=== PATIENT | female | born 1985 | race Caucasian/White ===

== ENCOUNTER 2019-11-16 10:47 | Emergency (ER) | payer SELFPAY ==
[2019-11-16 11:22] LABS: #Lymphocytes 0.5 thou/uL (1.20-3.40); #Monocytes 0.5 thou/uL (0.11-0.59); #Neutrophils 3.9 thou/uL (1.40-6.50); %Basophils 0.5 % (0.0-1.0); %Eosinophils 0.4 % (0.0-10.0); %Lymphocytes 10.2 % (21.0-51.0); %Monocytes 10.3 % (0.0-10.0); %Neutrophils 78.6 % (42.0-75.0); Mean Corpuscular HGB CONC 34.2 g/dL (32.0-36.0); Mean Corpuscular Hemoglobin 34.1 pg (27.0-31.0); Mean Corpuscular Volume 99.5 fL (78.0-98.0); Mean Platelet Volume 8.8 fL (7.4-10.4); Platelet Count 124 thou/uL (130-400); RBC Distribution Width 11.5 % (11.5-14.5); Red Blood Cell (RBC) Count 4.41 mill/uL (4.20-5.40)
[2019-11-16 11:45] LABS: ALT (SGPT) 143 U/L (8-55); AST (SGOT) 194 U/L (5-34); Albumin 4.8 g/dL (3.5-5.0); Alkaline Phosphatase 68 U/L (40-110); Anion Gap 24 mmol/L (10-20); BUN (Urea Nitrogen) 15 mg/dL (7.0-18.7); Bilirubin, Total 2.7 mg/dL (0.2-1.2); Calc. Creatinine Clearance 0 mL/min (70-130); Calcium 9.8 mg/dL (7.8-10.44); Carbon Dioxide 24 mmol/L (22-29); Chloride 89 mmol/L (98-107); Estimated GFR-MDRD 89; Globulin 3.3 g/dL (2.4-3.5); Glucose 144 mg/dL (70-105); Potassium 3.3 mmol/L (3.5-5.1); Protein, Total 8.1 g/dL (6.0-8.3); Sodium 134 mmol/L (136-145)
[2019-11-16 12:36] LABS: BHCG - Serum Negative (NEGATIVE); Pregs Control Background? CLEAR/WHITE (CLR/WHITE); Pregs Control Bar Appear? YES (CONTROL BAR)
[2019-11-16 12:45] LABS: Bilirubin 1+ (Negative); Blood, Urine Trace (Negative); Clarity Turbid (Clear); Glucose, Urine (Dipstick) Normal (Negative); Ketone, Urine 100 mg/dL (Negative); Leukocyte 25 Leu/uL (Negative); Nitrite Negative (Negative); Protein, Urine (Dipstick) 200 mg/dL (Neg-Trace); Specific Gravity, Urine 1.036 (1.002-1.036); Squamous Epithelial 21-50 HPF (0-3); Transitional Epithelial 0-3 HPF (None Seen); pH, Urine 6.5 (5.0-9.0)
[2019-11-16 12:46] LABS: Bacteria/HPF 1+ HPF (None Seen)
[2019-11-16] MEDS ORDERED: Lidocaine 1% w/Epinephrine 1:100K 20 ML VIAL ONE (13:14)
--- NOTE | 2019-11-16 13:20 | CT ---
CT HEAD WITHOUT CONTRAST: Date: 11/16/2019 INDICATION: Syncope. Fall with injury to head. FINDINGS: Ventricles have normal size and position. No evidence of intracranial hemorrhage. No mass, edema, inf arct, or other acute intracranial process. Paranasal sinuses are clear. Calvarium appears intact. Mild edema and laceration involving the scalp over the right frontal bone noted. IMPRESSION: No acute intracranial abnormalities. POS: [facility]W
--- NOTE | 2019-11-16 13:22 | CT ---
CT CERVICAL SPINE: Date: 11/16/2019 INDICATION: Syncope with fall and injury to head and neck. FINDINGS: The cervical vertebra maintain normal height and alignment. Disc spaces are maintained. No evidence o f fracture or subluxation. There is a posterior disc bulge at C5-6 which abuts the anterior cord. No other significant finding. IMPRESSION: 1. No evidence of fracture. 2. Posterior disc bulge at C5-6 effaces anterior subarachnoid space and appears to abut the anterior cord. POS: AGW
[2019-11-16] MEDS ORDERED: Adacel (T-DAP) 0.5 ML SYRINGE ONE (14:24)
== END 2019-11-16 14:55 | disposition home or self-care (01) ==
LOC: ERS 10:47
DX: R55 Syncope and collapse (principal); S01.81XA Laceration without foreign body of other part of head, initial encounter; S51.812A Laceration without foreign body of left forearm, initial encounter; R74.0 Nonspecific elevation of levels of transaminase and lactic acid dehydrogenase [LDH]; F41.9 Anxiety disorder, unspecified; F32.9 Major depressive disorder, single episode, unspecified; F17.210 Nicotine dependence, cigarettes, uncomplicated; W01.119A Fall on same level from slipping, tripping and stumbling with subsequent striking against unspecified sharp object, initial encounter; Z79.899 Other long term (current) drug therapy
CPT/HCPCS: 12001; 12013; 36415; 70450; 72125; 80053; 81003; 81015; 84484; 84703; 85025; 90471; 90715; 93005; 96360